=== PATIENT | male | born 1975 | race Caucasian/White ===

== ENCOUNTER 2016-07-08 08:42 | Emergency (ER) | payer SELFPAY ==
--- NOTE | 2016-07-08 08:58 | UC ---
Throat Pain/Nasal Todd HPI - History of Current Complaint Stated Complaint: SORE THROAT Time Seen by Provider: 07/08/16 08:51 - Allergies/Home Medications Allergies/Adverse Reactions: Allergies Allergy/AdvReac Type Severity Reaction Status Date / Time No Known Allergies Allergy Verified 07/08/16 08:49 PMH/Surg Hx/FS Hx/Imm Hx - Surgical History Surgical History: None - Social History Substance Use Type: None
[2016-07-08 09:00] VITALS: BP 136/91
--- NOTE | 2016-07-08 09:20 | UC ---
Throat Pain/Nasal Todd HPI - HPI Summary HPI Summary: ST, fevers, chills starting 3 days ago. Has 3 school-aged children living with him. Denies cough or trouble breathing. - History of Current Complaint Chief Complaint: UCGeneralIllness Stated Complaint: SORE THROAT Time Seen by Provider: 07/08/16 08:51 Hx Obtained From: Patient Onset/Duration: Gradual Onset, Lasting Days Severity: Moderate Cough: None Associated Signs & Symptoms: Positive: Fever - Allergies/Home Medications Allergies/Adverse Reactions: Allergies Allergy/AdvReac Type Severity Reaction Status Date / Time No Known Allergies Allergy Verified 07/08/16 08:49 PMH/Surg Hx/FS Hx/Imm Hx Previously Healthy: Yes - Surgical History Surgical History: None - Family History Known Family History: Positive: Hypertension - Social History Lives: With Family Alcohol Use: Daily Alcohol Amount: 1-2 beers after work Substance Use Type: None Smoking Status (MU): Never Smoked Tobacco - Immunization History Most Recent Influenza Vaccination: 2016 Review of Systems Constitutional: Fever, Chills Skin: Negative Eyes: Negative ENT: Sore Throat Respiratory: Negative Cardiovascular: Negative Gastrointestinal: Negative Genitourinary: Negative Motor: Negative Neurovascular: Negative Musculoskeletal: Negative Neurological: Negative Psychological: Negative All Other Systems Reviewed And Are Negative: Yes Physical Exam Triage Information Reviewed: Yes Appearance: Well-Appearing, No Pain Distress, Well-Nourished Vital Signs: Initial Vital Signs Temp 96.1 F 07/08/16 08:50 Pulse 97 07/08/16 08:50 Resp 16 07/08/16 08:50 BP 136/91 07/08/16 08:50 Pulse Ox 96 07/08/16 08:50 Vital Signs Reviewed: Yes Eye Exam: Normal Eyes: Positive: Conjunctiva Clear ENT: Positive: Pharyngeal erythema, TMs normal, Tonsillar swelling, Tonsillar exudate - marked Dental Exam: Normal Neck: Positive: Tenderness @, Enlarged Nodes @ - tonsillar L>R Respiratory Exam: Normal Respiratory: Positive: Chest non-tender, Lungs clear, Normal breath sounds, No respiratory distress, No accessory muscle use Cardiovascular Exam: Normal Cardiovascular: Positive: RRR - high 90s on exam, No Murmur Neurological Exam: Normal Neurological: Positive: Alert Psychological Exam: Normal Skin Exam: Normal Throat Pain/Nasal Course/Dx - Differential Dx/Diagnosis Provider Diagnoses: strep tonsillitis Discharge - Discharge Plan Condition: Stable Disposition: HOME Prescriptions: Amoxicillin (*) [Amoxicillin 875 MG (*)] 875 mg PO BID #20 tab Patient Education Materials: Strep Throat (ED) Referrals: No Primary Care Phys,NOPCP [Primary Care Provider] - Additional Instructions: Call or return if you do not have full resolution of your symptoms within 5 days. Come back sooner if you continue to have high fevers or if you develop trouble with swallowing or breathing.
== END 2016-07-08 09:23 | disposition home or self-care (01) ==
LOC: UCEAST 08:42
DX: J03.00 Acute streptococcal tonsillitis, unspecified (principal)
CPT/HCPCS: 87651; 99202; G0463

== ENCOUNTER 2017-11-07 18:47 | Emergency (ER) | payer BC ==
[2017-11-07 19:05] VITALS: BP 147/104
--- NOTE | 2017-11-07 19:25 | UC ---
Throat Pain/Nasal Todd HPI - HPI Summary HPI Summary: A 42 y/o male presents to [facility] c/o sore throat. Currently, the patient stated he does not feel that bad. According to the patient, he has been experiencing a sore throat since yesterday morning. He used a post-nasal drip (Flonase) to alleviate his symptoms, however it did not help. Today, nothing has changed which led him to look inside his throat and he noticed something white on his tonsils which led him to [facility]. Denies any congestion, cough or fever. PMHx of strep throat, denies DM. FHx is non-contributory. SHx of non-smoker. No medications. - History of Current Complaint Chief Complaint: UCRespiratory Stated Complaint: SORE THROAT,[place] Time Seen by Provider: 11/07/17 19:06 Hx Obtained From: Patient Onset/Duration: Sudden Onset, Lasting Days, Still Present Severity: Moderate Pain Intensity: 4 Pain Scale Used: 0-10 Numeric Cough: None Associated Signs & Symptoms: Positive: Negative - Allergies/Home Medications Allergies/Adverse Reactions: Allergies Allergy/AdvReac Type Severity Reaction Status Date / Time No Known Allergies Allergy Verified 11/07/17 19:05 PMH/Surg Hx/FS Hx/Imm Hx - Additional Past Medical History Additional PMH: STREP THROAT Endocrine History: Diabetes - NEGATIVE - Surgical History Surgical History: None - Family History Known Family History: Positive: Hypertension - Social History Alcohol Use: Occasionally Alcohol Amount: 1-2 beers after work Substance Use Type: None Smoking Status (MU): Never Smoked Tobacco - Immunization History Most Recent Influenza Vaccination: 2016 Review of Systems Constitutional: Negative Skin: Negative Eyes: Negative ENT: Sore Throat Respiratory: Negative Cardiovascular: Negative Gastrointestinal: Negative Genitourinary: Negative Motor: Negative Neurovascular: Negative Musculoskeletal: Negative Neurological: Negative Is Patient Immunocompromised?: No All Other Systems Reviewed And Are Negative: Yes Physical Exam - Summary Physical Exam Summary: Appearance: Well appearing, no pain distress Skin: warm, dry, reflects adequate perfusion Head/face: normal Eyes: EOMI, ANAHY ENT: Single exudate on left tonsil, mild tonsil enlargement, slight erythema, no adenopathy Neck: supple, non-tender Respiratory: CTA, breath sounds present Cardiovascular: RRR, pulses symmetrical Abdomen: non-tender, soft Bowel Sounds: present Musculoskeletal: normal, strength/ROM intact Neuro: normal, sensory motor intact, A&Ox3 Triage Information Reviewed: Yes Vital Signs: Initial Vital Signs Temp 98.1 F 11/07/17 19:02 Pulse 87 11/07/17 19:02 Resp 12 11/07/17 19:02 BP 147/104 11/07/17 19:02 Pulse Ox 99 11/07/17 19:02 Vital Signs Reviewed: Yes Throat Pain/Nasal Course/Dx - Course Course Of Treatment: Minor symptoms. No fever. Single small exudate. Likely viral with negative strep. Treat with steroid, decongestant. - Differential Dx/Diagnosis Differential Diagnosis/HQI/PQRI: Peritonsillar Abscess, Pharyngitis, Sinusitis, Tonsillitis, URI Provider Diagnoses: Acute pharyngitis Discharge - Sign-Out/Discharge Documenting (check all that apply): Patient Departure - DISCHARGE All imaging exams completed and their final reports reviewed: No Studies - Discharge Plan Condition: Improved Disposition: HOME Prescriptions: Guaifenesin/Pseudo 600/60(NF) [Mucinex D 600/60 (NF)] 1 tab PO BID #10 tab predniSONE TAB* [Deltasone TAB*] 50 mg PO DAILY #4 tab Patient Education Materials: Upper Respiratory Infection (ED) Referrals: Raz Pacheco MD [Primary Care Provider] - Additional Instructions: Stay well-hydrated. Tylenol, ibuprofen as needed. Eat with the prednisone as it can upset her stomach. Return if worse, high fever, new symptoms or other concerns. Call your doctor to follow-up. - Billing Disposition and Condition Condition: IMPROVED Disposition: Home - Attestation Statements Document Initiated by Riya: Yes Documenting Scribe: Juvenal Last Provider For Whom Riya is Documenting (Include Credential): Sotero Godinez Scribe Attestation: Woo, Juvenal Last, scribed for Sotero Godinez on 11/07/17 at 1958. Scribe Documentation Reviewed: Yes Provider Attestation: The documentation as recorded by the jose luisibe, Juvenal Last accurately reflects the service I personally performed and the decisions made by me, Sotero Godinez
== END 2017-11-07 19:55 | disposition home or self-care (01) ==
LOC: UCEAST 18:47
DX: J02.9 Acute pharyngitis, unspecified (principal)
CPT/HCPCS: 87651; 99212; G0463

== ENCOUNTER 2018-06-26 20:22 | Emergency (ER) | payer SELFPAY ==
[2018-06-26 20:30] VITALS: BP 136/90
[2018-06-26] MEDS ORDERED: DOXYcycline CAP(*) 100 MG PO ONE (20:42)
--- NOTE | 2018-06-26 20:44 | UC ---
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 no pain ot itching - History of Current Complaint Chief Complaint: UCSkin Time Seen by Provider: 06/26/18 20:29 Stated Complaint: TICK BITE Hx Obtained From: Patient Onset/Duration: Gradual Onset Timing: Constant Onset Severity: Mild Current Severity: Mild Pain Intensity: 0 Pain Scale Used: 0-10 Numeric Location: Discrete Character: Redness Alleviating Factor(s): Nothing Related History: Insect Bite/Sting - Allergy/Home Medications Allergies/Adverse Reactions: Allergies Allergy/AdvReac Type Severity Reaction Status Date / Time No Known Allergies Allergy Verified 06/26/18 20:30 PMH/Surg Hx/FS Hx/Imm Hx Previously Healthy: Yes - Surgical History Surgical History: None - Family History Known Family History: Positive: Hypertension - Social History Alcohol Use: Weekly Alcohol Amount: 1-2 beers after work Substance Use Type: None Smoking Status (MU): Never Smoked Tobacco - Immunization History Most Recent Influenza Vaccination: 2015 Review of Systems All Other Systems Reviewed And Are Negative: Yes Constitutional: Positive: Negative Skin: Positive: Rash Eyes: Positive: Negative ENT: Positive: Negative Respiratory: Positive: Negative Cardiovascular: Positive: Negative Gastrointestinal: Positive: Negative Genitourinary: Positive: Negative Motor: Positive: Negative Neurovascular: Positive: Negative Musculoskeletal: Positive: Negative Neurological: Positive: Negative Psychological: Positive: Negative Physical Exam Triage Information Reviewed: Yes Appearance: Well-Appearing, No Pain Distress, Well-Nourished Vital Signs: Initial Vital Signs Temp 98.6 F 06/26/18 20:27 Pulse 108 06/26/18 20:27 Resp 16 06/26/18 20:27 BP 136/90 06/26/18 20:27 Pulse Ox 97 06/26/18 20:27 Vital Signs Reviewed: Yes Eyes: Positive: Conjunctiva Clear ENT: Negative: Hearing grossly normal, Nasal congestion, Nasal drainage, Trismus , Hoarse voice Neck: Positive: Supple, Nontender, No Lymphadenopathy Respiratory: Positive: Lungs clear, Normal breath sounds, No respiratory distress Cardiovascular: Positive: RRR, No Murmur, Tachycardia Musculoskeletal: Positive: ROM Intact, No Edema Neurological: Positive: Alert Psychological Exam: Normal Skin Exam: Other - 3.5 cm x 4 cm anular rash with three concentric rings on right inner thigh Course/Dx - Diagnoses Provider Diagnosis: Erythema migrans (Lyme disease), Elevated BP without diagnosis of hypertension Discharge - Sign-Out/Discharge Documenting (check all that apply): Patient Departure All imaging exams completed and their final reports reviewed: No Studies - Discharge Plan Condition: Stable Disposition: HOME Prescriptions: DOXYcycline CAP(*) [DOXYcycline 100MG CAP(*)] 100 mg PO BID #28 cap Patient Education Materials: Lyme Disease (ED), Tick Bite (ED) Referrals: Raz Pacheco MD [Primary Care Provider] - Additional Instructions: we will treat you for possible lyme disease - Billing Disposition and Condition Condition: STABLE Disposition: Home
== END 2018-06-26 20:51 | disposition home or self-care (01) ==
LOC: UCEAST 20:22
DX: A69.20 Lyme disease, unspecified (principal); R03.0 Elevated blood-pressure reading, without diagnosis of hypertension
CPT/HCPCS: 99212; A9270-GY; G0463